=== PATIENT | male | born 1990 | race American Indian/Alaskan Native ===

== ENCOUNTER 2019-02-26 08:54 | Day surgery (SDC) | payer MEDICARE, OTHER ==
[~2019-02-26] VITALS: Ht 170.2 cm; Wt 132.2 kg
[2019-02-26] MEDS ORDERED: Catapres0.2 MG (09:38)
[2019-02-26] MEDS ORDERED: FLUO10 (09:39)
--- NOTE | 2019-02-26 11:43 | NUR ---
02/26/19 1143 Azalia De Guzman LATE ENTRY FOR TODAY AT 1058 PATIENTS IV INFILTRATED, HOT PACK APPLIED.
--- NOTE | 2019-02-26 11:44 | NUR ---
02/26/19 1144 Azalia De Guzman LATE ENTRY FOR TODAY DURING DISCHARGE PATIENTS PARENTS INFORMED THAT HIS IV INFILTRATED, RN INSTRUCTED PARENTS TO APPLY HOT PACK NEEDED FOR COMFORT. PARENTS VERBALIZED UNDERSTANDING. PATIENT DISCHARGED HOME.
== END 2019-02-26 11:28 | disposition home or self-care (01) ==
LOC: ORSCSDS 08:54
PROVIDERS: Internal Medicine Gastroenterology
PROC: 0DB98ZX Excision of Duodenum, Via Natural or Artificial Opening Endoscopic, Diagnostic (ICD-10-PCS; principal; 2019-02-26 10:15)
PROC: 0DB68ZX Excision of Stomach, Via Natural or Artificial Opening Endoscopic, Diagnostic (ICD-10-PCS; principal; 2019-02-26 10:15)
DX: R13.10 Dysphagia, unspecified (principal); R19.7 Diarrhea, unspecified; R11.2 Nausea with vomiting, unspecified; I10 Essential (primary) hypertension; K21.0 Gastro-esophageal reflux disease with esophagitis; J45.909 Unspecified asthma, uncomplicated; G47.33 Obstructive sleep apnea (adult) (pediatric); E66.01 Morbid (severe) obesity due to excess calories; Z68.41 Body mass index [BMI] 40.0-44.9, adult; Z79.899 Other long term (current) drug therapy
CPT/HCPCS: 88305; 88342; J0461; J2250; J2405; J2704; J7120